=== PATIENT | female | born 2005 | race Two or more races ===

== ENCOUNTER 2024-02-04 14:17 | Emergency (ER) | payer OTHER ==
[~2024-02-04] VITALS: Ht 167.6 cm; Wt 61.2 kg
[2024-02-04] MEDS ORDERED: SULFAMETHOXAZOLE/TRIMETHOPRIM DS 1 TAB PO ONE (16:15)
[2024-02-04] MEDS ORDERED: KETOROLAC TROMETHAMINE 30 MG VIAL IM ONE (16:15)
[2024-02-04] MEDS ORDERED: CEFTRIAXONE SODIUM 1,000 MG VIAL IM ONE (17:15)
== END 2024-02-04 17:09 | disposition home or self-care (01) ==
LOC: ER 14:18
DX: L02.216 Cutaneous abscess of umbilicus (principal)

== ENCOUNTER 2024-12-19 20:52 | Emergency (ER) | payer OTHER ==
[~2024-12-19] VITALS: Ht 175.3 cm; Wt 63.5 kg
[2024-12-19] MEDS ORDERED: PYRIDIUM DS200 MG PO (22:29)
[2024-12-19] MEDS ORDERED: BACTRIM DS TAB1 EACH PO (22:29)
[2024-12-19] MEDS ORDERED: PEPCID AC20 MG PO (22:29)
== END 2024-12-19 22:32 | disposition home or self-care (01) ==
LOC: ER 20:52
DX: N39.0 Urinary tract infection, site not specified (principal)